=== PATIENT | female | born 1985 | race Two or more races ===

== ENCOUNTER 2019-10-19 09:24 | Emergency (ER) | payer MEDICAID ==
[~2019-10-19] VITALS: Ht 165.1 cm; Wt 69.0 kg
[2019-10-19 09:38] VITALS: BP 134/90
[2019-10-19] MEDS ORDERED: KETOROLAC 60MG/2ML VIAL IM ONE (10:30)
== END 2019-10-19 13:24 | disposition home or self-care (01) ==
LOC: ER 09:24
DX: S63.8X1A Sprain of other part of right wrist and hand, initial encounter (principal); M25.561 Pain in right knee; X58.XXXA Exposure to other specified factors, initial encounter; Y93.89 Activity, other specified; Y92.89 Other specified places as the place of occurrence of the external cause; R03.0 Elevated blood-pressure reading, without diagnosis of hypertension
CPT/HCPCS: 29125; 73130; 73562; 81025; 96372; 99284; J1885